=== PATIENT | male | born 1985 | race American Indian/Alaskan Native ===

== ENCOUNTER 2016-11-14 21:15 | Emergency (ER) | payer SELFPAY ==
--- NOTE | 2016-11-14 22:30 | Emergency Department Report ---
HPI - General Chief Complaint: Upper Respiratory Infection Time Seen by Provider: 11/14/16 22:30 - HPI HPI: Patient is a 31-year-old male with a history of pressure on medication presents to ED complaining of left ear pain and facial pain 4 days. Patient states 3 days ago he went to urgent care and was given a Rx for amoxicillin and Flonase. Patient states after using the Flonase it made his heart rate elevated and his headache congested so he stopped taking it and decided to come in to get checked. Patient states he still notes facial pain from congestion. Patient denies fever/chills/nausea/vomiting/abdominal pain/chest pain/shortness of breath or any other problems. Patient states he has not taken his blood pressure medication today and will like a dose. Patient states he takes also out to 160mg and hydrochlorothiazide 12.5mg. Patient states he sutured tomorrow and continue his medication at home. ED Past Medical Hx - Past Medical History Hx Hypertension: Yes Additional medical history: Hiatal Hernia, L2 and L3 fracture. - Surgical History Past Surgical History?: No - Social History Smoking Status: Current Every Day Smoker Substance Use Type: None - Medications Home Medications: Home Medications Medication Instructions Recorded Confirmed Last Taken Type Acetaminophen [Tylenol] 500 mg PO PRN PRN #20 tablet 11/14/16 Unknown Rx guaiFENesin [Mucinex] 600 mg PO BID #20 tab.er.12h 11/14/16 Unknown Rx ED Review of Systems ROS: Stated complaint: SOB, DIZZINESS, CHEST PAIN Other details as noted in HPI Constitutional: denies: chills, fever Eyes: denies: eye pain, eye discharge, vision change ENT: congestion. denies: ear pain, throat pain Respiratory: denies: cough, shortness of breath, wheezing Cardiovascular: denies: chest pain, palpitations Endocrine: no symptoms reported Gastrointestinal: denies: abdominal pain, nausea, vomiting, diarrhea, constipation, melena Genitourinary: denies: urgency, dysuria, frequency, hematuria, testicular pain, testicular mass Musculoskeletal: denies: back pain, joint swelling, arthralgia Skin: denies: rash, lesions Neurological: denies: headache, weakness, paresthesias Psychiatric: denies: anxiety, depression Hematological/Lymphatic: denies: easy bleeding, easy bruising Physical Exam - Physical Exam Vital Signs: Vital Signs 11/14/16 21:42 Temperature 98.2 F Pulse Rate 80 Respiratory 16 Rate Blood Pressure 122/83 Blood Pressure 122/83 [Left] O2 Sat by Pulse 100 Oximetry Physical Exam: GENERAL: Alert and oriented x3, no apparent distress, Normal Gait, atraumatic. HEAD: Head is normocephalic and a-traumatic. EYES: Extra ocular muscles are intact. Pupils are equal, round, and reactive to light and accommodation. EARS: symetrical, atraumatic, non tender, ear canal clear , tympanic membrance mildly inflamed bilaterally. gross auditory nml bilaterally. Serous fluid seen behind tympanic membranes bilaterally. NOSE: Nose symetrical, Nontender,Nares appeared normal. MOUTH:Mouth is well hydrated and without lesions. Tonsils nonerythematous or swollen, Uvula midline, Tongue not elevated. Mucous membranes are moist. Posterior pharynx clear, no exudate or lesions. Patent airways. NECK: Supple. Non edematous, No carotid bruits. No lymphadenopathy or thyromegaly. LUNGS: Symetrical with respiration, No wheezing, no rales or crackles, CTAB. HEART: S1, S2 present, regular rate and rhythm without murmur, no rubs, no gallops. ABDOMEN: No organomegaly was noted,Positive bowel sounds, soft, and non- distended. . Nontender to palpation on all Quadrants, NO CVA tenderness. EXTREMITIES/MUSCULOSKELETAL: No cyanosis, clubbing, rash, lesions or edema. Full ROM bilaterally. UE Pulses 2+ bilaterally. NEUROLOGIC: No focal Deficit, Cranial nerves II through XII are grossly intact. No loss of sensation, PSYCHIATRIC: Mood is congruent with affect, denies suicidal or homicidal ideations. SKIN: Warm and dry, No lesions, No ulceration or induration present. ED Course Vital Signs 11/14/16 21:42 Temperature 98.2 F Pulse Rate 80 Respiratory 16 Rate Blood Pressure 122/83 Blood Pressure 122/83 [Left] O2 Sat by Pulse 100 Oximetry ED Medical Decision Making - EKG Data EKG shows normal: sinus rhythm Rate: normal - EKG Data Interpretation: other Nonspecific T-wave abnormality 11/14/16 22:54 - Medical Decision Making 31-year-old male presents to ED with sinusitis. ED course: Patient received one dose of Tylenol, 1 dose of Mucinex and he is daily blood pressure medication dose. VSS, pt is NAD. Discussed the patient continue taking his amoxicillin as prescribed and finished a dose. Patient states he travels back to [place] tomorrow and to continue his blood pressure medication. Discussed with patient to continue taking amoxicillin as prescribed by his primary care physician. Discussed the patient will follow up with his primary care physician in [place]. Patient verbally states he understands and will comply and follow-up. IF Symptoms worsen to return to ED Critical care attestation.: If time is entered above; I have spent that time in minutes in the direct care of this critically ill patient, excluding procedure time. ED Disposition Clinical Impression: Sinusitis Qualifiers: Sinusitis location: maxillary Chronicity: subacute Qualified Code(s): J01.00 - Acute maxillary sinusitis, unspecified Disposition: DISCHARGED TO HOME OR SELFCARE Is pt being admited?: No Does the pt Need Aspirin: No Condition: Stable Instructions: Sinusitis (ED), Otitis Media (ED) Additional Instructions: Follow-up with your primary care doctor when he gets to [place] Prescriptions: Acetaminophen [Tylenol] 500 mg PO PRN PRN #20 tablet PRN Reason: Pain guaiFENesin [Mucinex] 600 mg PO BID #20 tab.er.12h Forms: Accompanied Note Time of Disposition: 22:52
[2016-11-14] MEDS ORDERED: DIOVAN PO ONE (22:43)
[2016-11-14] MEDS ORDERED: MUCINEX ER PO ONE (22:43)
[2016-11-14] MEDS ORDERED: TYLENOL PO ONE (22:44)
[2016-11-14] MEDS ORDERED: HCTZ PO ONE (22:45)
[2016-11-14 22:56] VITALS: BP 132/88
== END 2016-11-14 23:18 | disposition home or self-care (01) ==
LOC: ED 21:15
DX: J01.00 Acute maxillary sinusitis, unspecified (principal); I10 Essential (primary) hypertension; F17.200 Nicotine dependence, unspecified, uncomplicated
CPT/HCPCS: 93005; 93010; 99282